=== PATIENT | female | born 1955 | race Caucasian/White ===

== ENCOUNTER → 2018-04-30 | Outpatient (CLI) | payer BC ==
--- NOTE | 2018-04-30 08:56 | MM ---
Reason for exam: additional evaluation requested from prior study. Last mammogram was performed 4 years and 1 month ago. History: Patient is postmenopausal. Benign excisional biopsy of the right breast, 2013. Physical Findings: Nurse did not find any significant physical abnormalities on exam. MG 3D Diag Mammo W/Cad ROBERT Bilateral CC and MLO view(s) were taken. Prior study comparison: April 09, 2014, mammogram. The breast tissue is heterogeneously dense. This may lower the sensitivity of mammography. Finding: There are typically benign diffuse/scattered calcifications in both breasts. Right upper outer quadrant biopsy marker noted. These results were verbally communicated with the patient and result sheet given to the patient on 04/30/18. ASSESSMENT: Benign, BI-RAD 2 RECOMMENDATION: Routine screening mammogram of both breasts in 1 year.
== END | disposition home or self-care (01) ==
LOC: RADMAMWWP 07:40
PROVIDERS: ATTEND Family Medicine
DX: R92.8 Other abnormal and inconclusive findings on diagnostic imaging of breast (principal)
CPT/HCPCS: 77062; 77066

== ENCOUNTER → 2018-06-13 | Outpatient (CLI) | payer BC | END | disposition home or self-care (01) | LOC: LABPAT 15:17 | PROVIDERS: ATTEND Orthopaedic Surgery | DX: Z01.812 Encounter for preprocedural laboratory examination (principal) | CPT/HCPCS: 87070 ==

== ENCOUNTER 2018-07-08 07:30 | Inpatient (IN) | payer BC ==
[2018-06-20 15:11] VITALS: BMI 41.1
--- NOTE | 2018-07-07 14:46 | HP ---
HISTORY AND PHYSICAL REASON FOR ADMISSION: Surgery is scheduled for 07/08/18 Eryn Nevarez is a 63-year-old patient seen with symptomatic left knee osteoarthritis. After having treatment options discussed, she elected to proceed with left total knee arthroplasty. Consent was obtained. Medical clearance was provided by Dr. Parks. PAST MEDICAL HISTORY: Past medical history is asthma. PAST SURGICAL HISTORY: Noncontributory. MEDICATIONS: Cymbalta. ALLERGIES: None reported. SOCIAL HISTORY: Patient denies tobacco use. PHYSICAL EXAMINATION: Evaluation of the left knee range of motion is negative 2 to 90 degrees. Tenderness along the medial lateral joint lines. There is crepitus along the lateral patellofemoral compartments with range of motion. There is pain with patellofemoral compression. Her collateral ligaments appear stable. Distal neurovascular exam is intact. Hip rotation is without pain. RADIOGRAPHS: Left knee radiographs reveal severe lateral and patellofemoral compartment osteoarthritis. IMPRESSION: 1. Left knee osteoarthritis. 2. Asthma. PLAN: Left total knee arthroplasty. Surgery scheduled for 07/08/2018. MMODL / IJN: [id number] /
[~2018-07-08 07:30] MED LIST: ACETAMINOPHEN TAB 500 MG TAB PO ONE; LIDOCAINE 1% 20 ML VIAL (10MG/ML) FOR IV START INTRADERMA PRN; MELOXICAM 7.5 MG TAB PO ONE; MIDAZOLAM (PF) 2 MG/2 ML VIAL IV PRN; TRANEXAMIC ACID 1,000 MG in SODIUM CHLORIDE 0.9% 50 ML IVPB ONE; ceFAZolin IN SWFI 2 GM/20 ML SYRINGE IVP ONE; fentaNYL (PF) 50 MCG/ML 2 ML AMP IV PRN
[2018-07-08] MEDS ORDERED: DEXAMETHASONE SOD PHOSPHATE 10 MG/ML 1 ML VIAL IV ONE (09:15)
[2018-07-08] MEDS ORDERED: ONDANSETRON 4 MG/2 ML VIAL IVP ONE (09:15)
[2018-07-08] MEDS: LACTATED RINGERS 1,000 ML IV SCH ×5 (09:16→22:49)
[2018-07-08] MEDS ORDERED: MIDAZOLAM 2 MG/2 ML VIAL IV ONE (09:27)
[2018-07-08] MEDS ORDERED: ROPIVACAINE 246.25 MG, EPINEPHrine 0.5 MG, KETOROLAC 30 MG, cloNIDine HCL/PF 80 MCG, WA... MISCELLANE ONE ×5 (09:52)
--- NOTE | 2018-07-08 09:57 | P.ONQ ---
Anesthesiology Proc Note - PNB - Peripheral Nerve Block Performed Left Adductor Canal Infusion Time Out Performed: Yes Procedure Start Time: : Procedure Stop Time: : Indication: Acute Post-Operative Pain, Requested by physician (Dr Tran) Sedation Type: Sedate with meaningful contact maintained Preparation: Sterile Dressing Position: Supine Catheter: Indwelling Needle Types: Carmenza Needle Size: 100mm (4") Needle Gauge: 18 Technique: Ultrasound Injectate: 0.5% Ropivacaine (see comment for volume) (30 ml) Blood Aspirated: No Pain Paresthesia on Injection Noted: No Resistance on Injection: Normal Events: Uneventful and Well Tolerated
[2018-07-08] MEDS ORDERED: ROPIVACAINE 1,100 MG, SODIUM CHLORIDE 0.9% 500 ML 330 ML MISCELLANE PRN ×2 (09:58)
[2018-07-08] MEDS ORDERED: LIDOCAINE 1% INJ 10MG/ML (20 ML MDV) ONE (10:12)
[2018-07-08] MEDS ORDERED: TRANEXAMIC ACID 1,000 MG/10 ML VIAL ONE (10:12)
[2018-07-08] MEDS ORDERED: MIDAZOLAM 2 MG/2 ML VIAL ONE (10:12)
[2018-07-08] MEDS ORDERED: fentaNYL (PF) 50 MCG/ML 2 ML AMP ONE (10:12)
[2018-07-08] MEDS ORDERED: ePHEDrine SULFATE/0.9% NACL/PF 50 MG/5 ML SYRINGE IV ONE (10:12)
[2018-07-08] MEDS ORDERED: SODIUM CHLORIDE 0.9% 100 ML BAG ONE (10:12)
[2018-07-08] MEDS ORDERED: SUCCINYLCHOLINE CHLORIDE 100 MG/5 ML SYR IV ONE (10:12)
[2018-07-08] MEDS ORDERED: PROPOFOL 10 MG/ML 20 ML VIAL IV ONE (10:12)
[2018-07-08] MEDS ORDERED: ceFAZolin 3,000 MG in SODIUM CHLORIDE 0.9% IRRIGATIO 3,000 ML IRRIGATION ONE (10:37)
[2018-07-08] MEDS ORDERED: LACTATED RINGERS 1,000 ML IV ONE ×2 (11:43→15:54)
[2018-07-08] MEDS ORDERED: HYDROmorphone 1 MG/ML 1 ML SYRINGE IVP PRN (12:31)
[2018-07-08] MEDS ORDERED: HYDROmorphone 0.5 MG/0.5 ML SYRINGE IVP PRN ×2 (12:31)
[2018-07-08] MEDS ORDERED: HYDROcodone/APAP 7.5-325MG 1 EACH TAB PO PRN (12:31)
[2018-07-08] MEDS ORDERED: NALOXONE 0.4 MG/ML 1 ML VIAL IV PRN (12:31)
[2018-07-08] MEDS ORDERED: hydrOXYzine PAMOATE 25 MG CAP PO PRN (12:31)
--- NOTE | 2018-07-08 12:31 | P.OP ---
Date of Procedure: 07/08/18 Preoperative Diagnosis: Left knee osteoarthritis Postoperative Diagnosis: Left knee osteoarthritis Procedure(s) Performed: Left total knee arthroplasty Implants: 1. Depuy attune size 6 left posterior stabilized cemented femur 2. Depuy attune size 6 fixed-bearing revision cemented tibial baseplate with a 14 x 50 mm stem 3. Depuy attune size 6 5 mm fixed-bearing posterior stabilized polyethylene tibial insert 4. Depuy attune 38 mm all polyethylene cemented patella Anesthesia: regional (Abductor canal catheter), local, spinal Surgeon: Jim Tran Cargo Vessel Stewardess #1: Yo Magallon Estimated Blood Loss (ml): 60 Pathology: other (Bone) Condition: stable Disposition: PACU Indications for Procedure: 63-year-old patient seen with symptomatic left knee osteoarthritis. After we discussed treatment options, she elected to proceed with total knee arthroplasty. Operative Findings: See description of procedure Description of Procedure: Patient was taken to the operative suite after having an adductor canal catheter placed by the department of anesthesia. Patient underwent a spinal anesthetic by the department of anesthesia. Patient was given preoperative IV intake antibiotics and TXA. A well-padded tourniquet was placed about the left lower extremity. The lower extremity was then prepped and draped in the normal sterile orthopedic fashion. The extremity was elevated, a tourniquet was insufflated to 300. A standard anterior incision was made sharply through skin. Dissection was taken down through the subcutaneous soft tissues down to the extensor mechanism. A medial arthrotomy was performed, patella was everted and knee was flexed. There was advanced osteoarthritis noted. I introduced my distal intramedullary femoral drill. I then introduced the distal femoral cutting jig. Eb OWENS secured the cutting jig with 2 pins. I held retractors in position while Eb OWENS performed the distal femoral resection through the guide area we now removed her distal femoral cutting guide. I did decide to proceed with a posterior stabilized implant given the patient's severe valgus deformity. We now placed our 4-in-1 femoral cutting block and positioned and it was secured with 2 pins by Eb OWENS while I held the block in position. The distal femoral finishing was now completed. I now completed the box cut. A proximal tibial cutting guide was positioned. I held the guide in the appropriate position with both hands well Eb OWENS inserted stabilizing pins into the guide. Proximal tibial cut was made. We now placed a trial femoral component into position, along with an appropriate size tibial tray and insert. We now took the knee through range of motion and had full extension good flexion and good overall soft tissue balance noted. The patella was everted and stabilized with 2 towel clips held by Eb OWENS while I performed a flush with patellar quad tendon utilizing a fresh sawblade. We templated the patella, appropriate drill holes were made. An appropriate trial patella was positioned, knee was taken through full range of motion with the patella tracking very nicely. The trial patella was removed. Drill holes were made through the femoral component. All trial components were removed after marking off the appropriate rotation of the tibia. Retractors were now positioned along the proximal tibia. An appropriate keel punch as well as appropriate drill hole for our a stemmed component given her severe valgus deformity was made with the appropriate size tibial guide by myself on Eb OWENS assisted by holding retractors. At this point appropriate size implants were chosen and opened. Did notice a small hairline crack through the lateral femoral condyle and placed 2-50 mm 4.5 cortical screws to prophylactically stabilize the area. The joint was irrigated copiously with pulse lavage mechanical irrigation. The posterior capsule was infiltrated with local analgesic. The wound was irrigated with pulse lavage mechanical irrigation. We mixed antibiotic methylmethacrylate. We placed the knee into flexion. We placed multiple retractors assisted by Eb OWENS to expose the proximal tibia. Once the methyl methacrylate was ready, the tibial component was cemented into place removing any excess methylmethacrylate form by both myself and Eb OWENS. The femoral component was cemented into place removing the removing any excess methylmethacrylate performed by both myself and Eb OWENS. We then inserted the appropriate size polyethylene tibial insert. We made sure that it was locked into position. We took the knee into full extension, and then back in a flexion making sure we had removed any excess methylmethacrylate. The patellar component was then cemented down and secured with clamp. Excess methylmethacrylate removed. We kept the knee in full extension, patellar clamp in position until methylmethacrylate had hardened. Once it had hardened the patellar clamp was removed. The knee was taken through full range of motion. The patella tracked nicely. There was good soft tissue balancing. The tourniquet was now released. Additional hemostasis was achieved via electrocautery. A second gram of TXA was given. The wound again was irrigated with pulse lavage mechanical irrigation. The superficial soft tissues were infiltrated local analgesic. The extensor mechanism was repaired with Vicryl. We checked the repair with range of motion and it was stable. The subcutaneous soft tissues were repaired with Vicryl in layers. The skin was approximated with pernio/Dermabond. Sterile dressings were applied followed by loose web roll and Jim bandage. The patient was transferred to a bed, and taken to recovery in stable and satisfactory condition. Eb OWENS assisted with this complex procedure.
[2018-07-08] MEDS ORDERED: HYDROmorphone 1 MG/ML 1 ML SYRINGE IVP ONE ×5 (12:33→15:21)
[2018-07-08] MEDS: fentaNYL (PF) 50 MCG/ML 2 ML AMP IV ONE ×2 (12:45→13:02)
--- NOTE | 2018-07-08 13:24 | XR ---
EXAMINATION TYPE: XR knee limited LT DATE OF EXAM: 07/08/2018 CLINICAL HISTORY: Left knee pain and arthritis status post total knee replacement. TECHNIQUE: Portable AP and crosstable lateral views of the left knee are obtained immediately postop eratively. COMPARISON: None FINDINGS: Metallic hardware from total left knee arthroplasty is seen and appears satisfactory in al ignment and position. 2 lateral fixating screws distal femoral metaphysis are also noted. There is e vidence of recent surgery with diffuse subcutaneous gas and soft tissue swelling noted. IMPRESSION: METALLIC HARDWARE FROM TOTAL LEFT KNEE ARTHROPLASTY IS SATISFACTORY IN ALIGNMENT.
[2018-07-08] MEDS ORDERED: diphenhydrAMINE 50 MG/ML 1 ML VIAL IVP ONE (14:35)
[2018-07-08] MEDS ORDERED: KETOROLAC 30 MG/ML 1 ML VIAL IVP ONE (17:53)
[2018-07-08] MEDS ORDERED: ceFAZolin IN SWFI 2 GM/20 ML SYRINGE IVP SCH (18:00)
[2018-07-08] MEDS: ceFAZolin 2 GM in SODIUM CHLORIDE 0.9% 100 ML IVPB SCH (18:10)
[2018-07-08] MEDS ORDERED: ceFAZolin 1,000 MG/50 ML BAG (PMX) IVPB ONE (18:30)
[2018-07-08] MEDS: HYDROmorphone 1 MG/ML 1 ML SYRINGE IVP ONE ×2 (19:08→19:50)
[2018-07-08] MEDS: ONDANSETRON 4 MG/2 ML VIAL IVP PRN (20:42)
[2018-07-08] MEDS: traMADol 50 MG TAB PO SCH ×2 (22:10→22:48)
[2018-07-08] MEDS: SENNOSIDES-DOCUSATE SODIUM 1 EACH TAB PO SCH (22:48)
[2018-07-09] MEDS: LACTATED RINGERS 1,000 ML IV SCH ×4 (02:08→17:15)
[2018-07-09] MEDS: ceFAZolin 2 GM in SODIUM CHLORIDE 0.9% 100 ML IVPB SCH (02:35)
[2018-07-09] MEDS: HYDROcodone/APAP 5-325MG 1 EACH TAB PO PRN ×3 (02:36→20:24)
--- NOTE | 2018-07-09 05:42 | P.PN ---
Progress Note - Text Progress Note Date: 07/09/18 63 yo female status post left total knee replacement. Patient received the adductor canal catheter. Ropivacaine 0.2% at 8 mls/hr. Patient was seen today at 5:00 AM. Patient was sleeping in bed comfortably. VAS score of 2/10 no complaints overnight. Assessment and plan: patient will be sent home with the adductor canal pump. Adequate pain control.
[2018-07-09] MEDS: ENOXAPARIN 30 MG/0.3 ML SYRINGE SQ SCH ×2 (06:13→17:15)
[2018-07-09] MEDS: ONDANSETRON 4 MG/2 ML VIAL IVP PRN ×3 (06:16→17:23)
[2018-07-09] MEDS: traMADol 50 MG TAB PO SCH ×4 (08:39→22:33)
[2018-07-09] MEDS: MELOXICAM 7.5 MG TAB PO SCH (08:40)
[2018-07-09 09:30] LABS: Basophils % (A) 0 %; Eosinophils # (A) 0.1 k/uL (0-0.7); Eosinophils % (A) 1 %; HGB 11.9 gm/dL (11.4-16.0); Lymphocytes # (A) 1.3 k/uL (1.0-4.8); Lymphocytes % (A) 17 %; MCH 31.3 pg (25.0-35.0); Mean Platelet Volume 6.7; Monocytes # (A) 0.5 k/uL (0-1.0); Monocytes % (A) 6 %; Neutrophils # (A) 5.7 k/uL (1.3-7.7); Neutrophils % (A) 74 %; Platelet Count 181 k/uL (150-450); RBC 3.79 m/uL (3.80-5.40); WBC 7.7 k/uL (3.8-10.6)
[2018-07-09 09:41] LABS: ALT 30 U/L (9-52); AST 29 U/L (14-36); Albumin 3.5 g/dL (3.5-5.0); Alkaline Phosphatase 50 U/L (38-126); Anion Gap 7 mmol/L; Blood Urea Nitrogen 11 mg/dL (7-17); Calcium 8.7 mg/dL (8.4-10.2); Carbon Dioxide 26 mmol/L (22-30); Chloride 107 mmol/L (98-107); Glucose 88 mg/dL (74-99); Potassium 3.8 mmol/L (3.5-5.1); Sodium 140 mmol/L (137-145); Total Bilirubin 0.9 mg/dL (0.2-1.3); Total Protein 5.8 g/dL (6.3-8.2)
[2018-07-09] MEDS ORDERED: HYDROcodone/APAP 5-325MG 1 EACH TAB PO PRN (11:15)
--- NOTE | 2018-07-09 11:20 | P.PN ---
Subjective Progress Note Date: 07/09/18 Principal diagnosis: Status post left total knee arthroplasty Patient evaluated [I, she does note some increase in pain since yesterday involving the knee. She has ambulated with therapy. She denies any chest pain or shortness breath. Objective - Vital Signs Vital signs: Vital Signs Temp 97.7 F 07/09/18 07:48 Pulse 68 07/09/18 07:48 Resp 17 07/09/18 07:49 BP 101/70 07/09/18 07:48 Pulse Ox 96 07/09/18 07:48 Intake & Output 07/08/18 07/09/18 07/09/18 18:59 06:59 18:59 Intake Total 2201 1200 360 Output Total 60 Balance 2141 1200 360 Weight 119.295 kg Intake: IV 2201 Intake, IV Titration 1200 Amount Lactated Ringers 1,000 ml 1000 @ 100 mls/hr IV .Q10H JHOAN Rx#:[id number] ceFAZolin 2 gm In Sodium 200 Chloride 0.9% 100 ml @ 100 mls/hr IVPB Q8H JHOAN Rx#:[id number] Oral 360 Output: Estimated Blood Loss 60 Other: Voiding Method Toilet Toilet # Voids 2 1 - Exam Left lower extremity: Incision is clean, dry, and intact. The exofin fusion tape is in good condition. There is minimal soft tissue swelling and ecchymosis surrounding the medial and lateral aspects of the incision. Calf is soft, no tenderness with palpation. Plantar flexion, dorsiflexion, EHL, FHL are intact. Sensory exam to light touch throughout the extremity is intact, dorsal pedis pulses 2+. - Labs CBC & Chem 7: 07/09/18 08:57 07/09/18 08:57 Labs: Abnormal Lab Results - Last 24 Hours (Table) 07/09/18 07/09/18 Range/Units 08:57 08:57 RBC 3.79 L (3.80-5.40) m/uL Total Protein 5.8 L (6.3-8.2) g/dL Assessment and Plan Plan: Assessment: 1. Postop day #1 status post left total knee arthroplasty Plan: Pain control, will adjust oral pain medication GI and DVT prophylaxis, continue current medication Daily dressing changes/ice and elevate CPM use, continue with physical therapy Medical recommendations Encourage incentive spirometer Discharge planning: Will reassess later this afternoon, likely discharge home tomorrow Time with Patient: Less than 30
--- NOTE | 2018-07-09 12:35 | P.CONS ---
History of Present Illness - Reason for Consult Consult date: 07/09/18 Medical management Requesting physician: Jim Tran - History of Present Illness This is a 63-year-old female patient of Dr. Parks. Patient presented for an elective left total knee arthroplasty with Dr. Tran. Patient is currently postop day 1. EBL 60 mL. Patient has a significant history for asthma and osteoarthritis. Today patient is complaining of some increased pain to left knee. Patient has been up ambulating. Patient is on Lovenox for DVT prophylaxis per orthopedic services. Patient also having some nausea. Patient does have Zofran. At this time patient denies chest pain or shortness of breath. Patient denies nausea vomiting or diarrhea. Patient denies any urinary burning or frequency. Patient is planning to be DC'd home when cleared. Review of Systems Please refer to HPI otherwise unremarkable Past Medical History Past Medical History: Asthma, Musculoskeletal Disorder, Osteoarthritis (OA) Additional Past Medical History / Comment(s): DDD History of Any Multi-Drug Resistant Organisms: None Reported Past Surgical History: Joint Replacement Additional Past Surgical History / Comment(s): wisdom teeth removed, rt hip replacement Past Anesthesia/Blood Transfusion Reactions: Family History of Problems w/ Anesthesia, Motion Sickness, Postoperative Nausea & Vomiting (PONV) Additional Past Anesthesia/Blood Transfusion Reaction / Comm: mother ponv Past Psychological History: No Psychological Hx Reported Smoking Status: Former smoker Past Alcohol Use History: Occasional Additional Past Alcohol Use History / Comment(s): quit smoking eraly 's, smoked for 10 yrs. Past Drug Use History: None Reported - Past Family History Mother Family Medical History: Cancer Medications and Allergies Home Medications Medication Instructions Recorded Confirmed Type Baclofen 10 mg PO DAILY PRN 12/16/15 07/08/18 History Aspirin [[place] Aspirin EC] 81 mg PO DAILY 07/08/18 07/08/18 History Allergies Allergy/AdvReac Type Severity Reaction Status Date / Time No Known Allergies Allergy Verified 07/08/18 22:04 Physical Exam Vitals: Vital Signs Temp Pulse Pulse Resp BP Pulse Ox 07/09/18 07:49 17 07/09/18 07:48 97.7 F 68 17 101/70 96 07/08/18 23:26 98.1 F 79 16 108/73 97 07/08/18 20:30 97.8 F 89 16 100/66 96 07/08/18 18:15 90 18 112/60 95 07/08/18 17:42 87 18 107/64 100 07/08/18 16:38 86 18 117/60 99 07/08/18 16:05 86 18 114/62 99 07/08/18 15:35 86 16 101/58 99 07/08/18 15:05 80 16 112/59 98 07/08/18 14:35 87 16 111/69 98 07/08/18 14:05 80 16 109/54 97 07/08/18 13:35 83 16 111/56 07/08/18 13:17 88 16 110/54 99 07/08/18 13:02 87 16 104/53 98 07/08/18 12:46 88 16 102/52 98 07/08/18 12:31 98.8 F 97 16 109/54 98 Intake and Output 07/08/18 07/09/18 07/09/18 22:59 06:59 14:59 Intake Total 1300 900 360 Balance 1300 900 360 Intake: IV 1000 Intake, IV Titration 300 900 Amount Lactated Ringers 1,000 ml 200 800 @ 100 mls/hr IV .Q10H JHOAN Rx#:[id number] ceFAZolin 2 gm In Sodium 100 100 Chloride 0.9% 100 ml @ 100 mls/hr IVPB Q8H JHOAN Rx#:[id number] Oral 360 Other: Voiding Method Toilet Toilet # Voids 2 2 1 Weight 119.295 kg Head normocephalic Neck supple Lungs clear to auscultation bilaterally no wheezing or crackles Heart regular rate and rhythm S1-S2, no rub or gallop Abdomen is soft nontender nondistended positive bowel sounds no hepatosplenomegaly Extremities no edema. Right knee dressing clean dry and intact Neuro alert and orientated to 3 Results CBC & Chem 7: 07/09/18 08:57 07/09/18 08:57 Labs: Abnormal Lab Results - Last 24 Hours (Table) 07/09/18 07/09/18 Range/Units 08:57 08:57 RBC 3.79 L (3.80-5.40) m/uL Total Protein 5.8 L (6.3-8.2) g/dL Assessment and Plan Assessment: 1. Status post right total knee arthroplasty. Patient is currently postop day 1. Patient currently on Lovenox for DVT prophylaxis. Pain management per orthopedic services. 2. History of osteoarthritis 3. History of asthma. No exacerbation at this time A.m. labs have been ordered Patient planning to be DC'd home when medically cleared Time with Patient: Greater than 30 (Greater than 60% of the total time spent in counseling and coordination of care. I performed an examination of the patient and discussed their management with the Nurse Practitioner. I have reviewed the Nurse Practitioner's notes and agree with the documented findings and plan of care)
[2018-07-09 16:49] VITALS: RESP 16
[2018-07-09] MEDS: SENNOSIDES-DOCUSATE SODIUM 1 EACH TAB PO SCH (20:24)
[2018-07-10] MEDS: LACTATED RINGERS 1,000 ML IV SCH (04:46)
[2018-07-10] MEDS: ENOXAPARIN 30 MG/0.3 ML SYRINGE SQ SCH (05:59)
[2018-07-10] MEDS: MELOXICAM 7.5 MG TAB PO SCH (08:47)
[2018-07-10] MEDS: traMADol 50 MG TAB PO SCH ×2 (08:47→12:40)
--- NOTE | 2018-07-10 08:54 | CDI ---
Documentation Clarification Form Date: 07/10/2018 8:39:16 AM From: Ivana Marquez RN,CCDS Email: [email or web address] Admit Date: 07/08/2018 8:16:00 AM Patient Name: Eryn Nevarez Visit Number: [id number] Discharge Date: ATTENTION: The Clinical Documentation Specialists (CDI) and [facility] Coding Staff appreciate your assistance in clarifying documentation. Please respond to the clarification below the line at the bottom and electronically sign. The CDI & [facility] Coding staff will review the response and follow-up if needed. Please note: Queries are made part of the Legal Health Record. If you have any questions, please contact the author of this message via ITS. Dr. López Patient has been described as 61 yo with symptomatic OA s/p Lt Total Knee arthroplasty History/Risk Factors: Asthma,OA, home med of Cymbalta Clinical Indicators: VTE Risk assessment notes Obesity Patients weight is 119.29 KGs Patients height is5 ft 7 in Calculated BMI is 41.2 Treatment: General Diet In order to capture the severity of condition associated with patient BMI of 41.2, a clinical diagnosis needs to be documented by the physician. Please clarify: Overweight Obesity, Class 1 Obesity, Class 2 Extreme (Morbid) (severe) obesity Other, please specify ____ Unable to determine NIH Classification for BMI: Overweight BMI 2529.9 Obesity (Class 1) BMI 3034.9 Obesity (Class 2) BMI 3539.9 Extreme (Morbid) (severe) obesity BMI =40 (Last Revision: September 2017) Extreme morbid obesity bmi 41.2 MTDD
[2018-07-10 09:26] LABS: ALT 37 U/L (9-52); AST 42 U/L (14-36); Albumin 3.2 g/dL (3.5-5.0); Alkaline Phosphatase 56 U/L (38-126); Anion Gap 5 mmol/L; Blood Urea Nitrogen 8 mg/dL (7-17); Calcium 8.6 mg/dL (8.4-10.2); Carbon Dioxide 26 mmol/L (22-30); Chloride 107 mmol/L (98-107); Glucose 148 mg/dL (74-99); Sodium 138 mmol/L (137-145); Total Protein 5.4 g/dL (6.3-8.2)
--- NOTE | 2018-07-10 10:42 | P.PN ---
Subjective Progress Note Date: 07/10/18 Principal diagnosis: Status post left total knee arthroplasty Patient evaluated today at bedside, pain is better controlled today. She has ambulated with therapy. She denies any chest pain or shortness breath. Objective - Vital Signs Vital signs: Vital Signs Temp 98.2 F 07/10/18 08:45 Pulse 95 07/10/18 08:45 Resp 16 07/10/18 08:45 BP 106/69 07/10/18 08:45 Pulse Ox 93 L 07/10/18 08:45 Intake & Output 07/09/18 07/10/18 07/10/18 18:59 06:59 18:59 Intake Total 360 632 Balance 360 632 Intake: Oral 360 632 Other: Voiding Method Toilet Toilet Toilet # Voids 1 2 - Exam Left lower extremity: Incision is clean, dry, and intact. The exofin fusion tape is in good condition. There is minimal soft tissue swelling and ecchymosis surrounding the medial and lateral aspects of the incision. Calf is soft, no tenderness with palpation. Plantar flexion, dorsiflexion, EHL, FHL are intact. Sensory exam to light touch throughout the extremity is intact, dorsal pedis pulses 2+. - Labs CBC & Chem 7: 07/09/18 08:57 07/10/18 08:08 Labs: Abnormal Lab Results - Last 24 Hours (Table) 07/10/18 Range/Units 08:08 Glucose 148 H (74-99) mg/dL AST 42 H (14-36) U/L Total Protein 5.4 L (6.3-8.2) g/dL Albumin 3.2 L (3.5-5.0) g/dL Assessment and Plan Plan: Assessment: 1. Postop day #2 status post left total knee arthroplasty Plan: Pain control, will discharge on norco and tramadol GI and DVT prophylaxis, dc on aspirin 81mg bid Daily dressing changes/ice and elevate CPM use, continue with physical therapy Medical recommendations Encourage incentive spirometer Discharge planning: Dc home today Time with Patient: Less than 30
--- NOTE | 2018-07-10 10:51 | P.DS ---
Providers Date of admission: 07/08/18 08:16 Expected date of discharge: 07/10/18 Attending physician: Jim Tran Consults: 07/08/18 12:31 Consult Physician Routine Consulting Provider: Sandor López Consult Reason/Comments: Medical management Do you want consulting provider notified?: Yes Primary care physician: Noris Parks Hospital Course: Date of admission: 07/08/2018 Date of discharge: 07/10/2018 Admission diagnosis: Status post left total knee arthroplasty Discharge diagnosis: Same Attending physician: Dr. Tran Surgical procedures: Left total knee arthroplasty Brief history: Patient is a 63-year-old female with a history of with progressive primary left knee osteoarthritis. At this point patient has failed conservative treatment measures and has opted to proceed with a elective left total knee arthroplasty. Hospital course: Details of patient's surgery can be found in operative report. Patient tolerated the procedure well and was subsequently transported to orthopedic floor. Patient's orthopeidc and medical care was provided daily. Patient had daily laboratory tests performed for evaluation of overall blood counts. Patient had daily physical therapy to include strengthening range of motion as well as education with walker ambulation. Patient had daily CPM usage as part of their physical therapy program. Patient was treated with Lovenox for their postoperative DVT prophylaxis during their inpatient stay. Patient was noted to have a relatively uneventful postoperative course. Patient reported satisfactory pain control with oral pain medications by postoperative day 0. Patient showed satisfactory progress with physical therapy. Patient moved steadily through the program and had no difficulty meeting the goals by postoperative day 2. Given patient's otherwise satisfactory course and having met physical therapy goals, plan is to discharge patient home on postoperative day 2. Discharge condition/disposition: Patient will be discharged home in stable condition. Discharge medications: Instructions are given on resumption of patient's normal daily medications per primary care recommendation, in addition patient will be prescribed Charlotte 5 mg/325mg, tramadol 50 mg, Colace 100 mg, aspirin 81 mg Discharge instructions: 1. Wound care and infection precautions, keep incision dry and covered while showering, no lotions, creams, moisturizers. No soaking, tubs, pools, hottubs. Do not scrub over the incision. 2. Weight-bear as tolerated with walker / cane until follow-up. 3. Ice and elevate when necessary. Do not exceed 20 minutes per hour with ice pack. 4. Utilize compression sleeve until seen at first follow up appointment. 5. Visiting nursing care. 6. Home physical therapy including home CPM. 7. Pain meds and anticoagulants per prescription. 8. Pain medication has potential to cause constipation. Increase oral fluid and fiber intake. Contact primary care provider if you have not had a bowel movement within 48 hours after discharge 9. No anti-inflammatory medication until discussed at first post operative visit, this including Motrin, Aleve, Mobic, Diclofenac. 10. Follow up in office at 2 weeks postop with Eb Magallon PA-C 11. Follow up with your primary care doctor 7-10 days after discharge. 12. Contact [facility] with any questions, . Procedures: Left total knee arthroplasty Patient Condition at Discharge: Good Plan - Discharge Summary Discharge Rx Participant: Yes New Discharge Prescriptions: New Aspirin [Adult Low Dose Aspirin EC] 81 mg PO BID #60 tablet. Docusate [Colace] 100 mg PO DAILY #30 capsule Hydrocodone/Acetaminophen [Charlotte 5-325] 1 each PO Q6HR PRN #28 tab PRN Reason: Pain traMADol HCl [Ultram] 50 mg PO Q6H PRN #28 tab PRN Reason: Pain Discontinued Baclofen 10 mg PO DAILY PRN PRN Reason: Pain Discharge Medication List Aspirin [Adult Low Dose Aspirin EC] 81 mg PO BID #60 tablet. 07/10/18 [Rx] Docusate [Colace] 100 mg PO DAILY #30 capsule 07/10/18 [Rx] Hydrocodone/Acetaminophen [Charlotte 5-325] 1 each PO Q6HR PRN #28 tab 07/10/18 [Rx] traMADol HCl [Ultram] 50 mg PO Q6H PRN #28 tab 07/10/18 [Rx] Follow up Appointment(s)/Referral(s): [facility], [NON-STAFF] - Yo Magallon PAC [PHYSICIAN RN [employer]OY[employer]] - 07/24/18 2:00 pm Noris Parks DO [Primary Care Provider] - 07/16/18 10:30 am Patient Instructions/Handouts: Knee Replacement (DC) Activity/Diet/Wound Care/Special Instructions: Orthopedic Discharge Instructions: 1. Wound care and infection precautions, keep incision dry and covered while showering, no lotions, creams, moisturizers. No soaking, pools, hot tubs. Do not scrub over incision. 2. Weight-bear as tolerated with walker / cane until follow-up. 3. Ice and elevate when necessary. Do not exceed 20 minutes per hour with ice pack. 4. Utilize compression sleeve until seen at first follow up appointment. 5. Pain meds and anticoagulants per prescription. 6. Pain medication has potential to cause constipation. Increase oral fluid and fiber intake. Contact primary care provider if you have not had a bowel movement within 48 hours after discharge. 7. No anti-inflammatory medication until discussed at first post operative visit, this including Motrin, Aleve, Mobic, Diclofenac. 8. Follow up in office at 2 weeks postop with Eb Magallon PA-C 9. Follow up with your primary care doctor 7-10 days after discharge. 10. Contact [facility] with any questions, [phone]. 11. [facility] - [phone] - will deliver to bedside before discharge Discharge Disposition: HOME WITH HOME HEALTH SERVICES
--- NOTE | 2018-07-10 11:32 | P.PN ---
Progress Note - Text Anesthesia POD 2. Patient is status post left TKR under spinal anesthesia with a left adductor canal catheter placed for postoperative pain relief. With ropivacaine 0.2% running at 8 cc's per hour, the patient's VAS is (2, 4). Catheter site is clean dry and intact.
--- NOTE | 2018-07-10 12:29 | P.PN ---
Subjective Progress Note Date: 07/10/18 This is a 63-year-old female patient of Dr. Parks. Patient presented for an elective left total knee arthroplasty with Dr. Tran. Patient is currently postop day 1. EBL 60 mL. Patient has a significant history for asthma and osteoarthritis. Today patient is complaining of some increased pain to left knee. Patient has been up ambulating. Patient is on Lovenox for DVT prophylaxis per orthopedic services. Patient also having some nausea. Patient does have Zofran. At this time patient denies chest pain or shortness of breath. Patient denies nausea vomiting or diarrhea. Patient denies any urinary burning or frequency. Patient is planning to be DC'd home when cleared. On 07/10/2018 patient is planning to be DC'd home with home health care. At this time patient denies nausea vomiting or diarrhea. Patient denies any chest pain or shortness of breath. Patient denies any urinary burning or frequency. Objective - Vital Signs Vital signs: Vital Signs Temp 98.2 F 07/10/18 08:45 Pulse 95 07/10/18 08:45 Resp 16 07/10/18 08:45 BP 106/69 07/10/18 08:45 Pulse Ox 93 L 07/10/18 08:45 Intake & Output 07/09/18 07/10/18 07/10/18 18:59 06:59 18:59 Intake Total 360 632 Balance 360 632 Intake: Oral 360 632 Other: Voiding Method Toilet Toilet Toilet # Voids 1 2 - Exam Head normocephalic Neck supple Lungs clear to auscultation bilaterally no wheezing or crackles Heart regular rate and rhythm S1-S2, no rub or gallop Abdomen is soft nontender nondistended positive bowel sounds no hepatosplenomegaly Extremities no edema. Right knee dressing is clean dry and intact Neuro alert and orientated to 3 - Labs CBC & Chem 7: 07/09/18 08:57 07/10/18 08:08 Labs: Abnormal Lab Results - Last 24 Hours (Table) 07/10/18 Range/Units 08:08 Glucose 148 H (74-99) mg/dL AST 42 H (14-36) U/L Total Protein 5.4 L (6.3-8.2) g/dL Albumin 3.2 L (3.5-5.0) g/dL Assessment and Plan Assessment: 1. Status post right total knee arthroplasty. Patient is currently postop day 2. Patient currently on Lovenox for DVT prophylaxis. Pain management per orthopedic services. 2. History of osteoarthritis 3. History of asthma. No exacerbation at this time 4. Mildly elevated liver enzyme. AST 42 and ALT 37. Will order repeat CMP in 2 days and patient to follow-up with her primary care provider I performed an examination of the patient and discussed their management with the Nurse Practitioner. I have reviewed the Nurse Practitioner's notes and agree with the documented findings and plan of care
[2018-07-10] MEDS: ONDANSETRON 4 MG/2 ML VIAL IVP PRN (12:40)
[2018-07-10 14:37] VITALS: BP 107/63; PULSE 96; TEMP 98.6
== END 2018-07-10 15:03 | disposition home health service (06) | DRG 470 ==
LOC: EDSTATUS 07:30 → 2ORMAIN 08:16 → 4SSUR 20:25
PROVIDERS: ADMIT Orthopaedic Surgery; ATTEND Orthopaedic Surgery
PROC: 0SRD0J9 Replacement of Left Knee Joint with Synthetic Substitute, Cemented, Open Approach (ICD-10-PCS; principal; 2018-07-08 10:15)
DX: M17.12 Unilateral primary osteoarthritis, left knee (principal); Z68.41 Body mass index [BMI] 40.0-44.9, adult; E66.01 Morbid (severe) obesity due to excess calories; I10 Essential (primary) hypertension; R74.8 Abnormal levels of other serum enzymes; J45.909 Unspecified asthma, uncomplicated; Z79.82 Long term (current) use of aspirin; Z96.641 Presence of right artificial hip joint; Z96.651 Presence of right artificial knee joint; Z87.891 Personal history of nicotine dependence; Z80.9 Family history of malignant neoplasm, unspecified
CPT/HCPCS: 80053; 85025; 88300

== ENCOUNTER → 2019-06-20 | Outpatient (CLI) | payer BC | END | disposition home or self-care (01) | LOC: LABPAT 15:39 | PROVIDERS: ATTEND Orthopaedic Surgery | DX: Z01.812 Encounter for preprocedural laboratory examination (principal) | CPT/HCPCS: 87070 ==

== ENCOUNTER 2019-07-14 08:23 | Observation (INO) | payer BC, MEDICARE ==
[2019-07-04 11:07] VITALS: BMI 40.3
--- NOTE | 2019-07-13 11:16 | HP ---
HISTORY AND PHYSICAL REASON FOR ADMISSION: Surgery 07/14/2019 Eryn Nevarez is a 64-year-old patient seen with symptomatic right knee osteoarthritis. We discussed options for treatment. She elected to proceed with right total knee arthroplasty. Consent was obtained. Medical clearance was provided by Dr. Noris Parks. PAST MEDICAL HISTORY: Asthma. PAST SURGICAL HISTORY: Right total hip arthroplasty, left total knee arthroplasty. MEDICATIONS: Cymbalta. ALLERGIES: None. SOCIAL HISTORY: She denies tobacco use. PHYSICAL EXAMINATION: Evaluation of the right knee: Her range of motion is -3/4-115. Tenderness along the medial lateral joint lines. Crepitus along the medial and lateral patellofemoral compartments with range of motion. Ligaments are stable. Hip rotation is without pain. Distal neurovascular exam is intact. RADIOGRAPHS: Radiographs of the right knee reveal severe osteoarthritic changes. IMPRESSION: 1. Right knee osteoarthritis. 2. Asthma. PLAN: Right total knee arthroplasty. Surgery scheduled 07/14/2019. MMODL / IJN: [id number] /
[~2019-07-14 08:23] MED LIST changes: +DEXAMETHASONE SOD PHOSPHATE 10 MG/ML 1 ML VIAL IV ONE; +HYDROmorphone 0.5 MG/0.5 ML SYRINGE IVP PRN; -MIDAZOLAM (PF) 2 MG/2 ML VIAL IV PRN; +ONDANSETRON 4 MG/2 ML VIAL IVP ONE; +ROPIVACAINE 246.25 MG, EPINEPHrine 0.5 MG, KETOROLAC 30 MG, cloNIDine HCL/PF 80 MCG, WA... MISCELLANE ONE; +TRANEXAMIC ACID 1,000 MG in SODIUM CHLORIDE 0.9% 100 ML IVPB ONE; -TRANEXAMIC ACID 1,000 MG in SODIUM CHLORIDE 0.9% 50 ML IVPB ONE; +ceFAZolin 3 GM in SODIUM CHLORIDE 0.9% 100 ML IVPB ONE; -ceFAZolin IN SWFI 2 GM/20 ML SYRINGE IVP ONE; -fentaNYL (PF) 50 MCG/ML 2 ML AMP IV PRN
[2019-07-14 08:43] VITALS: RESP 16
[2019-07-14] MEDS: LACTATED RINGERS 1,000 ML IV SCH ×2 (08:49→17:13)
[2019-07-14] MEDS ORDERED: MIDAZOLAM 2 MG/2 ML VIAL IV ONE (09:13)
[2019-07-14] MEDS: fentaNYL (PF) 50 MCG/ML 2 ML AMP IV PRN ×3 (09:13→13:18)
[2019-07-14] MEDS ORDERED: PROPOFOL 10 MG/ML 20 ML VIAL IV ONE (10:37)
[2019-07-14] MEDS ORDERED: SODIUM CHLORIDE 0.9% 100 ML BAG ONE (10:37)
[2019-07-14] MEDS ORDERED: fentaNYL (PF) 50 MCG/ML 2 ML AMP ONE (10:37)
[2019-07-14] MEDS ORDERED: ROCURONIUM BROMIDE 10 MG/ML 10 ML VIAL IV ONE (10:37)
[2019-07-14] MEDS ORDERED: LIDOCAINE 1% INJ 10MG/ML (20 ML MDV) ONE (10:37)
[2019-07-14] MEDS ORDERED: GLYCOPYRROLATE 0.2 MG/ML 2 ML VIAL ONE (10:37)
[2019-07-14] MEDS ORDERED: TRANEXAMIC ACID 1,000 MG/10 ML VIAL ONE (10:37)
[2019-07-14] MEDS ORDERED: SUCCINYLCHOLINE CHLORIDE 100 MG/5 ML SYR IV ONE (10:37)
[2019-07-14] MEDS ORDERED: MIDAZOLAM 2 MG/2 ML VIAL ONE (10:37)
[2019-07-14] MEDS ORDERED: NEOSTIGMINE 1 MG/ML 10 ML VIAL ONE (10:37)
[2019-07-14] MEDS ORDERED: ceFAZolin 3,000 MG in SODIUM CHLORIDE 0.9% IRRIGATIO 3,000 ML IRRIGATION ONE (11:10)
[2019-07-14] MEDS ORDERED: LACTATED RINGERS 1,000 ML IV ONE (11:50)
[2019-07-14] MEDS ORDERED: ROPIVACAINE 0.2%-NS ON-Q PUMP 1,090 MG, EMPTY PAIN BALL 1 EACH MISCELLANE PRN (12:18)
--- NOTE | 2019-07-14 12:20 | P.ANPRN ---
Procedure Note - Anesthesia - Nerve Block Performed Right Adductor Canal Infusion Time Out Performed: Yes Date of Procedure: 07/14/19 Procedure Start Time: :15 Procedure Stop Time: :30 Location of Patient: PreOp Indication: Acute Post-Operative Pain, Requested by Surgeon Specifically requested for management of pain by DrGiselle: Jim Tran Sedation Type: Sedate with meaningful contact maintained Preparation: Sterile Prep Position: Supine Catheter Depth at Skin (cm): 10 Catheter: Indwelling Needle Types: Pajunk Needle Gauge: 18 Ultrasound used to visualize needle placement: Yes Ultrasound used to observe medication spread: Yes Injectate: 0.5% Ropivacaine (see comment for volume) (20 cc) Blood Aspirated: No Pain Paresthesia on Injection Noted: No Resistance on Injection: Normal Image Stored and Saved: Yes Events: Uneventful and Well Tolerated
[2019-07-14] MEDS ORDERED: HYDROmorphone 0.5 MG/0.5 ML SYRINGE IVP PRN ×2 (12:35)
[2019-07-14] MEDS ORDERED: HYDROmorphone 1 MG/ML 1 ML SYRINGE IVP PRN (12:35)
[2019-07-14] MEDS ORDERED: HYDROcodone/APAP 5-325MG 1 EACH TAB PO PRN (12:35)
[2019-07-14] MEDS ORDERED: NALOXONE 0.4 MG/ML 1 ML VIAL IV PRN (12:35)
--- NOTE | 2019-07-14 12:35 | P.OP ---
Date of Procedure: 07/14/19 Preoperative Diagnosis: Right knee osteoarthritis Postoperative Diagnosis: Right knee osteoarthritis Procedure(s) Performed: Right total knee arthroplasty Implants: 1. Depuy attune size 6 right cruciate retaining cemented femur 2. Depuy attune size 7 cemented tibial baseplate 3. Depuy attune size 6 fixed bearing cruciate retaining 6 mm polyethylene tibial insert 4. Depuy attune 38 mm all polyethylene cemented patella Anesthesia: GETA, regional (Adductor canal catheter), local Surgeon: Jim Tran Four Roll Calender Operator #1: Yo Magallon Estimated Blood Loss (ml): 40 Pathology: other (Bone) Condition: stable Disposition: PACU Indications for Procedure: 64-year-old patient seen with progressive right knee pain. After having treatment options discussed, she elected to proceed with total knee arthroplasty. Operative Findings: see description of procedure Description of Procedure: Patient was taken to the operative suite after having an adductor canal catheter placed by the department of anesthesia. Patient underwent a general anesthetic by the department of anesthesia. Patient was given preoperative IV intake antibiotics and TXA. A well-padded tourniquet was placed about the right lower extremity. The lower extremity was then prepped and draped in the normal sterile orthopedic fashion. The extremity was elevated, a tourniquet was insufflated to 300. A standard anterior incision was made sharply through skin. Dissection was taken down through the subcutaneous soft tissues down to the extensor mechanism. A medial arthrotomy was performed, patella was everted and knee was flexed. There was advanced osteoarthritis noted. I introduced my distal intramedullary femoral drill. I then introduced the distal femoral cutting jig. Eb OWENS secured the cutting jig with 2 pins. I held retractors in position while Eb OWENS performed the distal femoral resection through the guide area we now removed her distal femoral cutting guide. We now placed our 4-in-1 femoral cutting block and positioned and it was secured with 2 pins by Eb OWENS while I held the block in position. The distal femoral finishing was now completed. A proximal tibial cutting guide was positioned. I held the guide in the appropriate position with both hands well Eb OWENS inserted stabilizing pins into the guide. Proximal tibial cut was made. We now placed a trial femoral component into position, along with an appropriate size tibial tray and insert. We now took the knee through range of motion and had full extension good flexion and good overall soft tissue balance noted. The patella was everted and stabilized with 2 towel clips held by Eb OWENS while I performed a flush with patellar quad tendon utilizing a fresh sawblade. We templated the patella, appropriate drill holes were made. An appropriate trial patella was positioned, knee was taken through full range of motion with the patella tracking very nicely. The trial patella was removed. Drill holes were made through the femoral component. All trial components were removed after marking off the appropriate rotation of the tibia. Retractors were now positioned along the proximal tibia. An appropriate keel punch was made with the appropriate size tibial guide by myself on Eb OWENS assisted by holding retractors. At this point appropriate size implants were chosen and opened. The joint was irrigated copiously with pulse lavage mechanical irrigation. The posterior capsule was infiltrated with local analgesic. The wound was irrigated with pulse lavage mechanical irrigation. We mixed antibiotic methylmethacrylate. We placed the knee into flexion. We placed multiple retractors assisted by Eb OWENS to expose the proximal tibia. Once the methyl methacrylate was ready, the tibial component was cemented into place removing any excess methylmethacrylate form by both myself and Eb OWENS. The femoral component was cemented into place removing the removing any excess methylmethacrylate performed by both myself and Eb OWENS. We then inserted the appropriate size polyethylene tibial insert. We made sure that it was locked into position. We took the knee into full extension, and then back in a flexion making sure we had removed any excess methylmethacrylate. The patellar component was then cemented down and secured with clamp. Excess methylmethacrylate removed. We kept the knee in full extension, patellar clamp in position until methylmethacrylate had hardened. Once it had hardened the patellar clamp was removed. The knee was taken through full range of motion. The patella tracked nicely. There was good soft tissue balancing. The tourniquet was now released. Additional hemostasis was achieved via electroc autery. A second gram of TXA was given. The wound again was irrigated with pulse lavage mechanical irrigation. The superficial soft tissues were infiltrated local analgesic. The extensor mechanism was repaired with Vicryl. We checked the repair with range of motion and it was stable. The subcutaneous soft tissues were repaired with Vicryl in layers. The skin was approximated with skin ulises. Sterile dressings were applied followed by loose web roll and Jim bandage. The patient was transferred to a bed, and taken to recovery in stable and satisfactory condition. Eb OWENS assisted with this complex procedure.
[2019-07-14] MEDS: ONDANSETRON 4 MG/2 ML VIAL IVP PRN ×2 (13:07→21:32)
[2019-07-14] MEDS ORDERED: PROMETHAZINE INJ 25 MG/ML 1 ML VIAL IVPB ONE (13:18)
--- NOTE | 2019-07-14 13:33 | XR ---
EXAMINATION TYPE: XR knee limited RT DATE OF EXAM: 07/14/2019 CLINICAL HISTORY: Right knee pain and arthritis status post total knee replacement. TECHNIQUE: Portable AP and crosstable lateral views of the right knee are obtained immediately posto peratively. COMPARISON: None FINDINGS: Metallic hardware from total right knee arthroplasty is seen and appears satisfactory in a lignment and position. There is evidence of recent surgery with diffuse subcutaneous gas , vertical skin ulises, and prominent soft tissue swelling noted. IMPRESSION: METALLIC HARDWARE FROM TOTAL RIGHT KNEE ARTHROPLASTY IS SATISFACTORY IN ALIGNMENT.
[2019-07-14] MEDS: ceFAZolin 3 GM in SODIUM CHLORIDE 0.9% 100 ML IVPB SCH (18:23)
[2019-07-14] MEDS ORDERED: SENNOSIDES-DOCUSATE SODIUM 1 EACH TAB PO SCH (21:00)
[2019-07-14] MEDS: HYDROcodone/APAP 5-325MG 1 EACH TAB PO PRN (21:31)
[2019-07-15] MEDS: ceFAZolin 3 GM in SODIUM CHLORIDE 0.9% 100 ML IVPB SCH (01:29)
[2019-07-15] MEDS: LACTATED RINGERS 1,000 ML IV SCH ×3 (01:29→11:38)
[2019-07-15 07:37] LABS: Basophils % (A) 0 %; Eosinophils % (A) 0 %; HCT 36.6 % (34.0-46.0); HGB 12.1 gm/dL (11.4-16.0); Lymphocytes # (A) 1.7 k/uL (1.0-4.8); Lymphocytes % (A) 23 %; MCH 31.1 pg (25.0-35.0); MCHC 33.1 g/dL (31.0-37.0); Mean Platelet Volume 7.3; Monocytes # (A) 0.4 k/uL (0-1.0); Monocytes % (A) 6 %; Neutrophils # (A) 5.1 k/uL (1.3-7.7); Neutrophils % (A) 69 %; Platelet Count 192 k/uL (150-450); RBC 3.89 m/uL (3.80-5.40); RDW 12.9 % (11.5-15.5); WBC 7.4 k/uL (3.8-10.6)
[2019-07-15] MEDS: HYDROcodone/APAP 5-325MG 1 EACH TAB PO PRN ×2 (08:07→13:56)
[2019-07-15] MEDS: ONDANSETRON 4 MG/2 ML VIAL IVP PRN (08:07)
[2019-07-15] MEDS ORDERED: BACLOFEN 10 MG TAB PO PRN (08:40)
[2019-07-15] MEDS ORDERED: ENOXAPARIN 30 MG/0.3 ML SYRINGE SQ SCH (09:00)
[2019-07-15] MEDS ORDERED: MELOXICAM 7.5 MG TAB PO SCH (09:00)
--- NOTE | 2019-07-15 12:24 | P.PN ---
Subjective Progress Note Date: 07/15/19 Principal diagnosis: Status post right total knee arthroplasty Patient is evaluated today at bedside, she is resting comfortably. She's ambulated well with therapy. She denies any chest pain or shortness of breath. Objective - Vital Signs Vital signs: Vital Signs Temp 98.2 F 07/15/19 07:00 Pulse 78 07/15/19 07:00 Resp 16 07/15/19 07:00 BP 100/59 07/15/19 07:00 Pulse Ox 96 07/15/19 07:00 Intake & Output 07/14/19 07/15/19 07/15/19 18:59 06:59 18:59 Intake Total 1701 1300 Output Total 40 Balance 1661 1300 Weight 128.2 kg Intake: IV 1701 Intake, IV Titration 1300 Amount Lactated Ringers 1,000 ml 1200 @ 100 mls/hr IV .Q10H JHOAN Rx#:[id number] ceFAZolin 3 gm In Sodium 100 Chloride 0.9% 100 ml @ 200 mls/hr IVPB Q8HR JHOAN Rx#:[id number] Output: Estimated Blood Loss 40 - Exam Right lower extremity: Incision is clean, dry, and intact. The ulises are in good condition. There is minimal soft tissue swelling and ecchymosis surrounding the medial and lateral aspects of the incision. Calf is soft, no tenderness with palpation. Plantar flexion, dorsiflexion, EHL, FHL are intact. Sensory exam to light touch throughout the extremity is intact, dorsal pedis pulses 2+. - Labs CBC & Chem 7: 07/15/19 06:29 Assessment and Plan Plan: Assessment: Postoperative day #1 status post right total knee arthroplasty Plan: Pain control, plan for discharge home on oral medication GI and DVT prophylaxis, aspirin 81 mg twice a day Wound care instructions discussed Physical therapy and nursing after discharge Medical recommendations Planning for discharge today Time with Patient: Less than 30
--- NOTE | 2019-07-15 12:28 | P.DS ---
Providers Date of admission: 07/14/2019 Expected date of discharge: 07/15/19 Attending physician: Jim Tran Consults: 07/14/19 12:35 Consult Physician Routine Consulting Provider: Noris Parks Reason/Comments: Medical management Do you want consulting provider notified?: Yes Primary care physician: Noris Parks Hospital Course: Date of admission: 07/14/2019 Date of discharge: 07/15/2019 Admission diagnosis: Status post right total knee arthroplasty Discharge diagnosis: Same Attending physician: Dr. Tran Surgical procedures: Right total knee arthroplasty Brief history: Patient is a 64-year-old female with a history of progressive primary right knee osteoarthritis. At this point patient has failed conservative treatment measures and has opted to proceed with a elective right total knee arthroplasty. Hospital course: Details of patient's surgery can be found in operative report. Patient tolerated the procedure well and was subsequently transported to orthopedic floor. Patient's orthopeidc and medical care was provided daily. Patient had daily laboratory tests performed for evaluation of overall blood counts. Patient had daily physical therapy to include strengthening range of motion as well as education with walker ambulation. Patient had daily CPM usage as part of their physical therapy program. Patient was treated with Lovenox for their postoperative DVT prophylaxis during their inpatient stay. Patient was noted to have a relatively uneventful postoperative course. Patient reported satisfactory pain control with oral pain medications by postoperative day 0. Patient showed satisfactory progress with physical therapy. Patient moved steadily through the program and had no difficulty meeting the goals by posto perative day 1. Given patient's otherwise satisfactory course and having met physical therapy goals, plan is to discharge patient home on postoperative day 1. Discharge condition/disposition: Patient will be discharged home in stable condition. Discharge medications: Instructions are given on resumption of patient's normal daily medications per primary care recommendation, in addition patient will be prescribed [place] 7.5 mg/325 mg, tramadol 50 mg, Colace 100 mg, aspirin 81 mg. Discharge instructions: 1. Wound care and infection precautions, keep incision dry and covered while showering, no lotions, creams, moisturizers. No soaking, tubs, pools, hottubs. Do not scrub over the incision. 2. Weight-bear as tolerated with walker / cane until follow-up. 3. Ice and elevate when necessary. Do not exceed 20 minutes per hour with ice pack. 4. Utilize compression sleeve until seen at first follow up appointment. 5. Visiting nursing care. 6. Home physical therapy including home CPM. 7. Pain meds and anticoagulants per prescription. 8. Pain medication has potential to cause constipation. Increase oral fluid and fiber intake. Contact primary care provider if you have not had a bowel movement within 48 hours after discharge 9. No anti-inflammatory medication until discussed at first post operative visit, this including Motrin, Aleve, Mobic, Diclofenac 10. Follow up in office at 2 weeks postop with Eb Magallon PA-C 11. Follow up with your primary care doctor 7-10 days after discharge. 12. Contact [facility] with any questions, . Procedures: Right total knee arthroplasty Patient Condition at Discharge: Good Plan - Discharge Summary Discharge Rx Participant: Yes New Discharge Prescriptions: New Aspirin [Adult Low Dose Aspirin EC] 81 mg PO BID #60 tablet. Docusate [Colace] 100 mg PO DAILY #30 capsule HYDROcodone/APAP 7.5-325MG [[place] 7.5] 1 - 2 each PO Q6HR PRN #40 tab PRN Reason: Pain traMADol HCl [Ultram] 50 mg PO Q6H PRN #28 tab PRN Reason: Pain Ondansetron HCl [Zofran] 8 mg PO Q12H PRN #30 tab PRN Reason: Nausea And Vomiting No Action Cetirizine HCl [Zyrtec] 10 mg PO DAILY PRN PRN Reason: allergy sx Multivitamins, Thera [Multivitamin (formulary)] 1 tab PO DAILY Ibuprofen [Motrin Ib] 400 mg PO Q8H PRN PRN Reason: Pain Baclofen [Lioresal] 20 mg PO HS PRN PRN Reason: Pain Ascorbic Acid/Multivit-Min [Emergen-C 1,000 mg Packet] 1,000 mg PO DAILY Discharge Medication List Ascorbic Acid/Multivit-Min [Emergen-C 1,000 mg Packet] 1,000 mg PO DAILY 07/04/19 [History] Baclofen [Lioresal] 20 mg PO HS PRN 07/04/19 [History] Cetirizine HCl [Zyrtec] 10 mg PO DAILY PRN 07/04/19 [History] Ibuprofen [Motrin Ib] 400 mg PO Q8H PRN 07/04/19 [History] Multivitamins, Thera [Multivitamin (formulary)] 1 tab PO DAILY 07/04/19 [History] Aspirin [Adult Low Dose Aspirin EC] 81 mg PO BID #60 tablet. 07/15/19 [Rx] Docusate [Colace] 100 mg PO DAILY #30 capsule 07/15/19 [Rx] HYDROcodone/APAP 7.5-325MG [[place] 7.5] 1 - 2 each PO Q6HR PRN #40 tab 07/15/19 [Rx] Ondansetron HCl [Zofran] 8 mg PO Q12H PRN #30 tab 07/15/19 [Rx] traMADol HCl [Ultram] 50 mg PO Q6H PRN #28 tab 07/15/19 [Rx] Follow up Appointment(s)/Referral(s): [facility], [NON-STAFF] - Yo Magallon, ROSA ELENA [PHYSICIAN [employer] TRA[employer]INTENANCE MAN] - 07/30/19 2:30 pm Activity/Diet/Wound Care/Special Instructions: Orthopedic Discharge Instructions: 1. Wound care and infection precautions, keep incision dry and covered while showering, no lotions, creams, moisturizers. No soaking, pools, hot tubs. Do not scrub over incision. 2. Weight-bear as tolerated with walker / cane until follow-up. 3. Ice and elevate when necessary. Do not exceed 20 minutes per hour with ice pack. 4. Utilize compression sleeve until seen at first follow up appointment. 5. Pain meds and anticoagulants per prescription. 6. Pain medication has potential to cause constipation. Increase oral fluid and fiber intake. Contact primary care provider if you have not had a bowel movement within 48 hours after discharge. 7. No anti-inflammatory medication until discussed at first post operative visit, this including Motrin, Aleve, Mobic, Diclofenac. 8. Follow up in office at 2 weeks postop with Eb Magallon PA-C 9. Follow up with your primary care doctor 7-10 days after discharge. 10. Contact [facility] with any questions, [phone]. 11. *Please call [facility] once home to arrange delivery of Continuous Passive Motion (CPM) machine - [phone] Discharge Disposition: HOME WITH HOME HEALTH SERVICES
--- NOTE | 2019-07-15 14:17 | P.PN ---
Progress Note - Text 07/15 653am 64-year-old female status post total knee replacement by Dr. Tran. Patient has an On-Q pump for postop pain control with the solution running at 8 mL an hour with a VAS of 3. Plan to continue On-Q pump infusion.
[2019-07-15 14:37] VITALS: BP 129/78; PULSE 73; TEMP 98
== END 2019-07-15 15:08 | disposition home health service (06) ==
LOC: OR 08:23 → 4SSUR 12:38 → OR 07-15 00:55
PROVIDERS: ADMIT Orthopaedic Surgery; ATTEND Orthopaedic Surgery
DX: M17.11 Unilateral primary osteoarthritis, right knee (principal); J45.909 Unspecified asthma, uncomplicated; I10 Essential (primary) hypertension; E66.9 Obesity, unspecified; Z68.41 Body mass index [BMI] 40.0-44.9, adult; Z79.899 Other long term (current) drug therapy; Z96.641 Presence of right artificial hip joint; Z96.652 Presence of left artificial knee joint; Z79.1 Long term (current) use of non-steroidal anti-inflammatories (NSAID); Z87.891 Personal history of nicotine dependence; Z98.811 Dental restoration status; Z97.2 Presence of dental prosthetic device (complete) (partial); Z91.89 Other specified personal risk factors, not elsewhere classified; Z87.898 Personal history of other specified conditions
CPT/HCPCS: 97116; 97161; 64448; 76942; 85025; 88300; 73560; 27447; G0378; C1776; C1713; J2250; J0171; J1100; J2550; J2710; J0690 ×3; J2405 ×2; J2001; J3010; J1885; J1650; J2795 ×2; J0330; J2704; J0735; J1170

== ENCOUNTER → 2021-05-05 | Outpatient (CLI) | payer BC ==
[2021-05-05 12:18] LABS: African American GFR (CKD) >90 (>60 ml/min/1.73 sqM); Blood Urea Nitrogen 11 mg/dL (7-17); Non-African American GFR(CKD) >90 (>60 ml/min/1.73 sqM)
--- NOTE | 2021-05-05 13:56 | CT ---
EXAMINATION TYPE: CT pelvis w con DATE OF EXAM: 05/05/2021 COMPARISON: None. HISTORY: Endometrial hyperplasia CT DLP: 1828.40 mGycm Automated exposure control for dose reduction was used. CONTRAST: Performed without oral but with IV Contrast, patient injected with 100 ml mL of Isovue 300. FINDINGS: Slightly retroflexed uterus. Adjacent scattered pelvic phleboliths. No free fluid in the pelvic cul-d e-sac. Left ovary is difficult to distinctly visualize adjacent to nonopacified bowel loops but likely eileen l in size. Right pelvis or adnexa is 5.7 x 4.0 cm thin-walled cyst or cystic lesion with thin septa. Pelvic ultrasound follow-up is advised to further evaluate and characterize. No suspicious small or large bowel dilatation. A few scattered distal colonic diverticula. Tiny fat-containing umbilical hernia. Small fat-containing left inguinal hernia. Metallic hardware from right hip arthroplasty causes streak artifact somewhat limiting evaluation of pelvic structures. Moderate to severe disc space narrowing with vacuum disc phenomenon at L2-L3 level. Mild to moderate disc space narrowing with vacuum disc phenomenon at L3-L4 and L4-L5 levels. Slight scoliotic curve. F acet arthropathy lower lumbar levels. IMPRESSION: Endometrial findings best appreciated on ultrasound or CT. No definitive abnormal pelvic adenopathy seen. There is abnormal 5.7 cm right pelvic likely ovarian cyst or cystic lesion. Advise p elvic ultrasound follow-up to further evaluate and characterize.
== END | disposition home or self-care (01) ==
LOC: RADCTMAIN 11:09
PROVIDERS: ATTEND Family Medicine
DX: R93.89 Abnormal findings on diagnostic imaging of other specified body structures (principal)
CPT/HCPCS: 82565; 84520; 72193; 36415; Q9967

== ENCOUNTER → 2021-05-23 | Outpatient (CLI) | payer BC ==
--- NOTE | 2021-05-24 12:46 | MM ---
Reason for exam: screening (asymptomatic). Last mammogram was performed 3 years and 1 month ago. History: Patient is postmenopausal. Benign excisional biopsy of the right breast, 2013. Physical Findings: A clinical breast exam by your physician is recommended on an annual basis and results should be correlated with mammographic findings. MG Screening Mammo w CAD Bilateral CC and MLO view(s) were taken. Prior study comparison: April 30, 2018, bilateral MG 3d diag mammo w/cad [facility]. April 09, 2014, mammogram. The breast tissue is heterogeneously dense. This may lower the sensitivity of mammography. Stable benign calcifications. There is no discrete abnormality. No significant changes when compared with prior studies. ASSESSMENT: Benign, BI-RAD 2 RECOMMENDATION: Routine screening mammogram of both breasts in 1 year.
== END | disposition home or self-care (01) ==
LOC: RADMAMWWP 16:24
PROVIDERS: ATTEND Family Medicine
DX: Z12.31 Encounter for screening mammogram for malignant neoplasm of breast (principal); Z78.0 Asymptomatic menopausal state; R92.1 Mammographic calcification found on diagnostic imaging of breast
CPT/HCPCS: 77067

== ENCOUNTER → 2022-06-06 | Outpatient (CLI) | payer MEDICARE ==
--- NOTE | 2022-06-07 08:48 | MM ---
Reason for Exam: Screening (asymptomatic). Last mammogram was performed 1 year(s) and 1 month(s) ago. Patient History: Menarche at age 12. First Full-Term at age 18. Postmenopausal. 2013, Benign Excisional Biopsy on the right side. Risk Values: Ira 5 year model risk: 1.5%. NCI Lifetime model risk: 4.8%. Prior Study Comparison: 04/09/2014 Screening Mammogram, Unknown. 04/30/2018 Bilateral Diagnostic Mammogram, [facility]. 05/23/2021 Bilateral Screening Mammogram, [facility]. Tissue Density: The breast tissue is heterogeneously dense. This may lower the sensitivity of mammography. Findings: Analyzed By CAD. Grouped calcifications within the right breast at 3.9 cm from nipple and 11.1 cm from nipple at medial anterior depth and and medial middle depth respectively. Grouped calcifications within a left breast above the nipple on MLO and medial on CC 2.6 cm at anterior depth. Overall Assessment: Incomplete: need additional imaging evaluation, BI-RAD 0 Management: Special View Mammogram of both breasts. A clinical breast exam by your physician is recommended on an annual basis and results should be correlated with mammographic findings. [facility] will attempt to contact patient to return for supplemental views and ultrasound if indicated. Electronically signed and approved by: Sixto Lancaster DO
== END | disposition home or self-care (01) ==
LOC: RADMAMWWP 06:53
PROVIDERS: ATTEND Family Medicine
DX: Z12.31 Encounter for screening mammogram for malignant neoplasm of breast (principal); Z78.0 Asymptomatic menopausal state; Z98.890 Other specified postprocedural states
CPT/HCPCS: 77063; 77067

== ENCOUNTER → 2022-06-09 | Outpatient (CLI) | payer MEDICARE ==
--- NOTE | 2022-06-09 14:51 | MM ---
Reason for Exam: Additional evaluation requested from abnormal screening. Last screening mammogram was performed less than 1 month ago. Patient History: Menarche at age 12. First Full-Term at age 18. Postmenopausal. 2013, Benign Excisional Biopsy on the right side. Risk Values: Ira 5 year model risk: 1.5%. NCI Lifetime model risk: 4.8%. Prior Study Comparison: 05/23/2021 Bilateral Screening Mammogram, [facility]. 06/06/2022 Bilateral MG 3D screening mammo w/cad, [facility]. Tissue Density: The breast tissue is heterogeneously dense. This may lower the sensitivity of mammography. Findings: Analyzed By CAD. Mammotome biopsy clip right breast redemonstrated. There are scattered and loosely grouped small benign-appearing round calcifications throughout the bilateral breasts. No definitive suspicious group of microcalcification persisting on additional views. Overall Assessment: Benign, BI-RAD 2 Management: Screening Mammogram of both breasts in 1 year. A clinical breast exam by your physician is recommended on an annual basis and results should be correlated with mammographic findings. This exam should not preclude additional follow-up of suspicious palpable abnormalities. Results were given to the patient verbally at the time of exam. Electronically signed and approved by: Ab Choudhury M.D.
== END | disposition home or self-care (01) ==
LOC: RADMAMWWP 14:10
PROVIDERS: ATTEND Family Medicine
DX: R92.8 Other abnormal and inconclusive findings on diagnostic imaging of breast (principal); Z78.0 Asymptomatic menopausal state
CPT/HCPCS: 77066; G0279; 77062

== ENCOUNTER → 2023-06-11 | Outpatient (CLI) | payer MEDICARE ==
--- NOTE | 2023-06-12 15:49 | MM ---
Reason for Exam: Screening (asymptomatic). Last screening mammogram was performed 12 month(s) ago. Patient History: Menarche at age 12. First Full-Term at age 18. Postmenopausal. 2013, Benign Excisional Biopsy on the right side. Risk Values: Ira 5 year model risk: 1.5%. NCI Lifetime model risk: 4.5%. Prior Study Comparison: 04/09/2014 Screening Mammogram, Unknown. 04/30/2018 Bilateral Diagnostic Mammogram, [facility]. 05/23/2021 Bilateral Screening Mammogram, [facility]. 06/06/2022 Bilateral MG 3D screening mammo w/cad, [facility]. 06/09/2022 Bilateral MG 3D work up w/cad [facility], [facility]. Tissue Density: The breast tissue is heterogeneously dense. This may lower the sensitivity of mammography. Findings: Analyzed By CAD. Pattern appears symmetrical and stable. Multiple benign-appearing scattered punctate calcifications are present bilaterally. No significant interval changes are evident. Core marker is within the right breast. No suspicious groups of microcalcifications, spiculated or lobular masses, architectural distortion or other secondary signs of malignancy are mammographically apparent. Overall Assessment: Benign, BI-RAD 2 Management: Screening Mammogram of both breasts in 1 year. A negative mammogram report should not preclude additional follow up of suspicious palpable abnormalities. Patient should continue monthly self breast exam. A clinical breast exam by your physician is recommended on an annual basis and results should be correlated with mammographic findings. Electronically signed and approved by: Dirk Jean D.O. Radiologis
== END | disposition home or self-care (01) ==
LOC: RADMAMWWP 07:27
PROVIDERS: ATTEND Family Medicine
DX: Z12.31 Encounter for screening mammogram for malignant neoplasm of breast (principal); Z78.0 Asymptomatic menopausal state
CPT/HCPCS: 77063; 77067

== ENCOUNTER → 2024-06-13 | Outpatient (CLI) | payer MEDICARE ==
--- NOTE | 2024-06-15 02:52 | MM ---
Reason for Exam: Screening (asymptomatic). Last screening mammogram was performed 12 month(s) ago. Patient History: Menarche at age 12. First Full-Term at age 18. Postmenopausal. 2013, Benign Excisional Biopsy on the right side. Risk Values: Ira 5 year model risk: 1.5%. NCI Lifetime model risk: 4.3%. Prior Study Comparison: 06/06/2022 Bilateral MG 3D screening mammo w/cad, [facility]. 06/09/2022 Bilateral MG 3D work up w/cad [facility], [facility]. 06/11/2023 Bilateral MG 3D screening mammo w/cad, [facility]. Tissue Density: The breasts are heterogeneously dense, which may obscure small masses. Findings: Analyzed By CAD. The pattern is symmetrical. No significant interval change. Core markers are within the right breast No suspicious groups of microcalcifications, spiculated or lobular masses, architectural distortion or other secondary signs of malignancy are mammographically apparent. Overall Assessment: Benign, BI-RAD 2 Management: Screening Mammogram of both breasts in 1 year. A negative mammogram report should not preclude additional follow up of suspicious palpable abnormalities. Patient should continue monthly self breast exam. A clinical breast exam by your physician is recommended on an annual basis and results should be correlated with mammographic findings. Note on Iar scores and lifetime risk: 1. A Ira score greater than 3% is considered moderate risk. If this is the case, consider specialist referral to assess eligibility for a risk reducing agent. 2. If overall lifetime risk for the development of breast cancer is 20% or higher, the patient may qualify for future screening with alternating mammogram and breast MRI. [facility], , 06/15/2024 2:48 AM. Electronically signed and approved by: Dirk Jean D.O. Radiologis
== END | disposition home or self-care (01) ==
LOC: RADMAMWWP 11:08
PROVIDERS: ATTEND Family Medicine
DX: Z12.31 Encounter for screening mammogram for malignant neoplasm of breast (principal); R92.333 Mammographic heterogeneous density, bilateral breasts; Z78.0 Asymptomatic menopausal state
CPT/HCPCS: 77063; 77067